=== PATIENT | male | born 2000 | race Caucasian/White ===

== ENCOUNTER 2023-08-24 11:30 | Outpatient (RCR) | payer OTHER, SELFPAY ==
--- NOTE | 2023-06-01 15:30 | OT.OPOE ---
OT Outpatient Ortho Eval OT Outpatient Ortho Eval* Start: 06/01/23 07:53 [place]: Status: Active Protocol: Document 06/01/23 07:53 SE (Rec: 06/01/23 15:18 SE [id number]) E-signed By Marti Guerra, OTR/L, CLT OT OP Ortho Eval Details Complexity Complexity Low Insurance Information Insurance Information Workman's Comp Insurance Information Comments MEDICAL Dx: S63.502A - Unspecified sprain of left wrist, initial encounter DOI: 03/20/23. Suspect TFCC injury type 1. Outpatient History/Precautions Current Condition/Medical Diagnosis Referring Provider Rach Jeronimo, MPH, PA-C Treatment Diagnosis L wrist pain, M25.532 Date of Onset 03/20/23 Other Precautions Work Comp Injury. While at work at [employer], Livan attempted to lift a heavy box with a manager hiv. His manager hiv fell and the weight of the box downward jolted his left hand /wrist causing injury. Since his previous visit, Livan has been wearing his wrist brace daily and taking Tylenol and Ibuprofen PRN. DOI: . Suspect TFCC injury type 1 . Livan's left wrist pain has sporadically and minimally improved with immobilization with a wrist brace and oral OTC pain medications. Denies new injury. Occupational therapy referral provided today. Patient will continue to wear his wrist brace daily. Ice and take Tylenol and/or Ibuprofen before and after work and therapy. Report of Workability completed. If pain fails to improve after several weeks with Occupational Therapy, next step would be immobilization with a cast or an MRI to advance our understanding. Report of Workability completed stating Livan may work with restrictions ( see scanned note). Livan will follow-up in 4-6 weeks for clinical re-evaluation. Medical/Functional History Medical History Reviewed Yes Prior Level of Function/Mobility Fully Indep with all self- cares/IADLs, has been in good health with no other recent injuries. Social History Employment Status [employer] Employed Current Occupation [employer] Critical Job Demands Pull,Lift,Overhead Reach, Prolonged Standing Other Critical Job Demands Lifting, carrying, reaching, grab/grasp, walking, Drives a forklift as well Ortho Subjective Subjective Subjective DOI: 03/20/23. Work Comp Injury . While at work at [employer], Livan attempted to lift a heavy box with a manager hiv. His manager hiv fell and the weight of the box downward jolted his left hand/wrist causing injury . Since his previous visit, Livan has been wearing his wrist brace daily and taking Tylenol and Ibuprofen PRN. Denies new injuries. Livan states his pain comes and goes. Pain has worsened over the past week after discontinuing Ibuprofen. He is frustrated that his pain has been ongoing for 2 months now. His pain remains located on the ulnar side of the wrist. Pain worsens with supination, radial deviation and is worse in the evening. Patient arrives to clinic visit today wearing his L wrist brace. Pain Assessment Pain Present Pain Present Pain Reported Location Left Wrist Description Tightness,Radiating,Throbbing Intensity 4 Goniometric Comments Goniometric Comments Goniometric Comments Left wrist exam: AROM: ext/flex: 48/72 degrees without pain. Pronation/supination: 90/90 degrees. Mild ulnar sided wrist pain with supination. Mild-moderate pain with radial wrist deviation. Denies pain with ulnar wrist deviation. Hand Pinch/Fermenter Champagne Strength Hand Left Fermenter Champagne Strength Position 1 (lbs) 63 Fermenter Champagne Strength Position 2 (lbs) 80 Lateral Pinch Strength (lbs) 24 Three Point Pinch (lbs) 17 Tip Pinch Strength (lbs) 14 Right Fermenter Champagne Strength Position 1 (lbs) 90 Fermenter Champagne Strength Position 2 (lbs) 110 Lateral Pinch Strength (lbs) 25 Three Point Pinch (lbs) 19 Tip Pinch Strength (lbs) 16 OT Objective Data Hand Hand Dominance Right Skin/Wounds/Edema Comments No erythema, induration or cutaneous changes. No open wounds nor abrasions. No swelling nor ecchymosis. No obvious deformity. Mild-moderate tenderness over TFCC/ulnar collateral ligament . Nontender: distal ulna, distal radius, radial styloid, ulnar styloid. No snuffbox tenderness. Sensation Sensation Assessment Summary Comments CMS intact with 2+ radial pulse. [place], warm digits with brisk capillary refill. Sensation confirmed distally. OT Problems Problems Problems Decreased Strength,Decreased Range of Motion,Pain,Lifting, Gripping,Pinching Other Problems Opening Containers,Dressing, Fasteners Patient Potential Excellent Assessment Assessment Assessment 23-year-old R hand dominant male patient had an injury at work: DOI: 03/20/23. Work Comp Injury. While at work at [employer], Livan attempted to lift a heavy box with a manager hiv. His manager hiv fell and the weight of the box downward jolted his left hand/wrist causing injury. Since his previous visit, Livan has been wearing his wrist brace daily and taking Tylenol and Ibuprofen PRN. Referral for Skilled OT came from Ortho provider to treat L wrist pain /discomfort, improve limited AROM and L wrist weakness. Patient's left wrist pain has sporadically and minimally improved with immobilization with a wrist brace and oral OTC pain medications. Per Ortho provider notes from visit on 05/29/23: Patient will continue to wear his wrist brace daily. Ice and take Tylenol and/or Ibuprofen before and after work and therapy. If pain fails to improve after several weeks with Occupational Therapy, next step would be immobilization with a cast or an MRI to advance our understanding. Livan will follow-up with Ortho provider in 4-6 weeks for clinical re- evaluation. PLAN: treat pain symptoms with the use of modalities as indicated, manual therapy for progressing AROM, development of an individualized HEP, patient education on the progression of treatment and activity modifications while healing. Occupational Therapy Treatment Plan - OP Potential Rehabilitation Potential Excellent Barriers Barriers to goal attainment None noted Set Goals Goals Set with Patient Yes Goals Goals 1. Patient will verbalize 3 activity modifications to decrease abusive/overloading of the muscles, joints & tendons. 2. Pt will demonstrate pain- free coding auditor and pinch strength comparable to the uninvolved side in order to improve functional grasp, hold, reach, and lifting ability needed to complete self-care, leisure tasks, and work activities. 3. Through activity participation in skilled therapy sessions, and consistency in performing a customized HEP, patient will improve capacity of tendons and muscles to manage load in order to have less pain with ADLs, work, leisure activities and IADLs. 4. Patient will wean from wearing the L hand/wrist brace from 8+ hours during the daytime hours to less than 4 hours w/o increase in pain symptoms. Target Date 8 weeks Treatment Plan Treatment Plan Evaluation,Edema Control, Iontophoresis,Manual Therapy, Ultrasound,Therapeutic Exercise,Self Care/Home Management,Education Expected Frequency 1-2x Week Expected Duration 6-8 Weeks Home Program Home Program Home Program Initiated Home Program Specifics AROM of the L wrist (gentle) w /o increasing pain level ( ideally done 9a46-go to fatigue or to pain) 2-3x/day Flexion/Extension Radial/Ulnar Deviation Supination/Pronation Finger spreads Recertification Information Recertification Information Initial Certification Date 06/01/23 Recertification Due Date 08/30/23 Click To Default 'Per treatment plan' Per treatment plan Continued Plan of Care and Interventions Per treatment plan Provider Signature Shows Agreement With POC & Medical Necessity Physician Comment/Change Comment or Changes Physician NPI Number #
== END 2023-09-14 11:17 | disposition home or self-care (01) ==
PROVIDERS: Visit Provider Physician Assistant Surgical
DX: S63.502A Unspecified sprain of left wrist, initial encounter (principal); Z51.89 Encounter for other specified aftercare
CPT/HCPCS: 97033; 97035; 97110; 97140; 97165; X5282